=== PATIENT | female | born 1975 | race Caucasian/White ===

== ENCOUNTER → 2022-08-30 | Outpatient (CLI) | payer OTHER | LOC: COL.RAD 09:15 | DX: K44.9 Diaphragmatic hernia without obstruction or gangrene (principal); K21.9 Gastro-esophageal reflux disease without esophagitis ==

== ENCOUNTER 2022-09-05 11:34 | Day surgery (SDC) | payer OTHER ==
[~2022-09-05] VITALS: Ht 180.3 cm; Wt 103.0 kg
[2022-09-05] VITALS (10 sets, daily range): BP systolic 116–151; BP diastolic 71–89; PULSE 74–88; TEMP 97.4–98.7
[2022-09-05] MEDS ORDERED: ULTRAM 50MG TAB50 MG PO (12:32)
[2022-09-05] MEDS ORDERED: TOPAMAX 100MG100 M1 PO (12:32)
[2022-09-05] MEDS ORDERED: ZOFRAN8 MG PO (12:32)
[2022-09-05] MEDS ORDERED: NURTEC ODT75 MG PO (12:33)
[2022-09-05] MEDS ORDERED: LAMICTAL XR200 MG PO (12:33)
[2022-09-05] MEDS ORDERED: PROTONIX 40MG T40 MG PO (12:33)
[2022-09-05] MEDS ORDERED: PROVENTIL0.09 MG/A1 IH (12:34)
[2022-09-05] MEDS ORDERED: ZYRTEC 10MG10 MG PO (12:35)
[2022-09-05] MEDS ORDERED: FLONASEALLERGY NS (12:36)
[2022-09-05] MEDS ORDERED: REGLAN 10MG10 MG/TAB PO (12:36)
--- NOTE | 2022-09-05 12:50 | NUR ---
The nurse called Peri Mata CRNA to notify him of the patient's reports of nausea. An order was obtained from Zofran 4 mg and was administered to the patient.
[2022-09-05] MEDS ORDERED: TRELEGY ELLIPT1 EAC1 IH (18:19)
--- NOTE | 2022-09-06 01:52 | NUR ---
SHIFT REPORT FROM SERENITY GARCÍA. PATIENT IN BED ON ROOM ENTRY. HS MEDS PER EMAR. RONAN FOR PAIN PRN, SECOND DOSE NEEDED. X6 LAPS WITH BANDAIDS, 2 OF THEM WERE BLEEDING AND NEW BANDAIDS APPLIED. IV TO INT.
[2022-09-06 03:28] VITALS: BP 132/79; PULSE 83; TEMP 98.4
[2022-09-06 07:15] VITALS: BP 135/77; PULSE 75; TEMP 98.8
--- NOTE | 2022-09-06 10:48 | NUR ---
RINA met with the patient and her , Seng, to discuss discharge plan. The patient lives on [address] with her . She reports independence with ADLs and does not have any DME. The patient's PCP is Dr. Morris at [facility] and she receives her medications from [facility]. The patient does not have a DPOA-HC and she was not interested in completing one at this time. The patient plans to return home with her upon discharge. No additional needs at this time. *Discharge plan: home with *
[2022-09-06 12:00] VITALS: BP 121/88; PULSE 77; TEMP 98.4
--- NOTE | 2022-09-06 15:54 | NUR ---
PATIENT ALERT AND ORIENTED X4. VSS. PATIENT HERE FOR VIC CABRERA. PATIENT TOLERATING FULL LIQUIDS. PATIENT REQUESTING PAIN MEDICATION OFTEN. PATIENT ENCOURAGED TO AMBULATE HALLS TO ALLEVIATE GAS PAINS. PATIENT HAS PASSED GAS, NO BM. PATIENT RESTING IN BED WITH CALL LIGHT NEAR.
[2022-09-06 16:19] VITALS: BP 141/96; PULSE 85; TEMP 99.8
[2022-09-06] MEDS ORDERED: NORCO 325 MG-51 TAB PO (16:47)
--- NOTE | 2022-09-06 17:58 | NUR ---
DISCHARGE INSTRUCTIONS PROVIDED. PATIENT EDUCATION GIVEN. MEDICATIONS REVIEWED. IV DC'D. PATIENT DENIES ANY QUESTIONS OR CONCERNS. PATIENT ESCORTED OUT VIA WHEELCHAIR.
== END 2022-09-06 17:55 | disposition home or self-care (01) ==
LOC: SDCO 11:34 → SURG 17:45 → SDCO 09-06 17:55
DX: K44.9 Diaphragmatic hernia without obstruction or gangrene (principal); K21.9 Gastro-esophageal reflux disease without esophagitis; E66.9 Obesity, unspecified; J45.909 Unspecified asthma, uncomplicated; Z68.30 Body mass index [BMI] 30.0-30.9, adult; Z98.84 Bariatric surgery status; Z79.51 Long term (current) use of inhaled steroids
CPT/HCPCS: OP; C1781; J1100; J1170; J1885; J2250; J2405; J2550; J2704; J3010; J7120

== ENCOUNTER → 2023-01-14 | Outpatient (CLI) | payer OTHER ==
[~2023-01-14] MED LIST: FLONASEALLERGY NS; LAMICTAL XR200 MG PO; NORCO 325 MG-51 TAB PO; NURTEC ODT75 MG PO; PROTONIX 40MG T40 MG PO; PROVENTIL0.09 MG/A1 IH; REGLAN 10MG10 MG/TAB PO; TOPAMAX 100MG100 M1 PO; TRELEGY ELLIPT1 EAC1 IH; ULTRAM 50MG TAB50 MG PO; ZOFRAN8 MG PO; ZYRTEC 10MG10 MG PO
== END ==
LOC: COL.RAD 01-11 10:00
DX: K21.9 Gastro-esophageal reflux disease without esophagitis (principal); Z98.890 Other specified postprocedural states

== ENCOUNTER 2023-03-18 10:15 | Emergency (ER) | payer OTHER ==
[~2023-03-18] VITALS: Ht 180.3 cm; Wt 93.2 kg
[2023-03-18 10:24] VITALS: TEMP 98
[2023-03-18 11:25] LABS: BASO % 0.8 % (0.0-2.0); EOS # 0.1 K/mm3 (0.0-0.7); EOS % 2.5 % (0.0-4.0); GRAN % 57.7 % (42.2-75.2); HEMATOCRIT 41.7 % (37.0-47.0); HEMOGLOBIN 12.6 g/dl (12.5-16.0); LYMPH # 1.6 K/mm3 (1.2-3.4); LYMPH % 31.2 % (20.0-51.0); MEAN CELL VOLUME 89 fl (80.0-100.0); MEAN CORPUSCULAR HEMOGLOBIN 27 pg (27-31); MEAN CORPUSCULAR HGB CONC 30 g/dl (33.0-37.0); MEAN PLATELET VOLUME 12.3 fl (7.4-10.4); MONO # 0.4 K/mm3 (0.1-0.6); MONO % 7.6 % (1.7-9.3); PLATELET COUNT 149 K/mm3 (130-400); RED BLOOD COUNT 4.68 M/mm3 (4.10-5.30); REDCELL DISTRIBUTION WIDTH-CV 15.9 % (11.5-14.5)
[2023-03-18 11:38] LABS: ALANINE AMINOTRANSFERASE 12 U/L (0-55); ALKALINE PHOSPHATASE 81 U/L (40-150); ANION GAP 10 mmol/L (7-16); AST,SGOT 17 U/L (5-34); BILIRUBIN,TOTAL 0.4 mg/dL (0.2-1.2); BLOOD UREA NITROGEN 10 mg/dL (7-19); CALCIUM 9.2 mg/dL (8.4-10.2); CARBON DIOXIDE 18 mmol/L (22-29); CHLORIDE 114 mmol/L (98-107); CREATININE, serum 0.92 mg/dL (0.57-1.11); GLUCOSE 89 mg/dL (70-99); POTASSIUM 3.7 mmol/L (3.5-4.5); SODIUM 142 mmol/L (136-145); TOTAL PROTEIN 6.9 gm/dL (6.2-8.1)
[2023-03-18 11:53] LABS: TROPONIN-I < 0.010 ng/mL (0.00-0.033)
[2023-03-18] MEDS ORDERED: ZOFRAN ODT4 MG PO (15:02)
[2023-03-18] MEDS ORDERED: PERCOCET 325 MG1 TA2 PO (15:02)
[2023-03-18 15:10] VITALS: BP 128/82; PULSE 66
== END 2023-03-18 15:10 | disposition home or self-care (01) ==
LOC: COL.ER 10:15
PROVIDERS: Personal Emergency Response Attendant
DX: K21.9 Gastro-esophageal reflux disease without esophagitis (principal); K44.9 Diaphragmatic hernia without obstruction or gangrene; Z90.49 Acquired absence of other specified parts of digestive tract; Z98.84 Bariatric surgery status; Z98.890 Other specified postprocedural states; Z88.5 Allergy status to narcotic agent
CPT/HCPCS: J2405; J3010; J7030; Q9967